=== PATIENT | female | born 1955 | race Caucasian/White ===

== ENCOUNTER 2018-10-24 15:38 | Inpatient (IN) | payer OTHER ==
[~2018-10-24] VITALS: Ht 157.5 cm; Wt 88.9 kg
[2018-10-24 15:43] VITALS: BP 148/74
[2018-10-24] MEDS ORDERED: ASPIRIN 81 MG TAB.CHEW PO ONE (15:50)
--- NOTE | 2018-10-24 15:52 | NUR ---
MEDICATED WITH ASA; EKG PLACED ON MD 'S DESK---PT BACK TO ER LOBBY WITH DAUGHTER WILL CONTINUE TO WAIT FOR AVAILABLE ROOM FOR MD YIP
--- NOTE | 2018-10-24 15:58 | NUR ---
PT TO ER BED 12
[2018-10-24] MEDS ORDERED: ASPIRIN 81 MG TAB.CHEW ONE (15:59)
--- NOTE | 2018-10-24 16:55 | NUR ---
PT A&OX4, BIB FAMILY C/O SUDDEN ONSET INTERMITTENT LEFT SIDED "HEAVY" CHEST PAIN RADIATES TO LUE PAIN / X 2 DAYS. ALSO C/O NAUSEA AND DIARRHEA X 1 TODAY, ABDOMEN DISTENDED. BREATHING EVEN AND UNLABORED. LUNG SOUNDS CTAB. SR WITH RIGHT BUNDLE BRANCH BLOCK ON MONITOR.
[2018-10-24 17:04] LABS: BASOPHILS % (AUTO) 0.3 % (0.0-2.0); EOSINOPHILS # (AUTO) 0.1 K/uL (0-0.4); EOSINOPHILS % (AUTO) 0.8 % (0.0-4.0); HEMATOCRIT 38.6 % (36-48); HEMOGLOBIN 13.1 g/dL (12.0-16.0); LYMPHOCYTES # (AUTO) 3.3 K/uL (2.5-16.5); LYMPHOCYTES % (AUTO) 26.8 % (20.5-51.1); MEAN CORPUSCULAR HEMOGLOBIN 29 pg (27-31); MEAN CORPUSCULAR HGB CONC 34 g/dL (33-37); MEAN CORPUSCULAR VOLUME 84.8 fL (80-94); MONOCYTES # (AUTO) 0.7 K/uL (0.8-1.0); MONOCYTES % (AUTO) 5.8 % (1.7-9.3); NEUTROPHILS # (AUTO) 8.1 K/uL (1.8-7.7); NEUTROPHILS % (AUTO) 66.3 % (42.2-75.2); PLATELET COUNT (AUTO) 276 K/uL (140-450); RED BLOOD CELL COUNT(AUTO) 4.55 MIL/uL (4.20-5.40); RED CELL DISTRIBUTION WIDTH 13.9 % (11.6-13.7); WHITE BLOOD COUNT (AUTO) 12.2 K/uL (4.8-10.8)
[2018-10-24] MEDS ORDERED: MORPHINE SULFATE 2 MG/ML SYR IVP PRN (17:05)
[2018-10-24] MEDS ORDERED: ONDANSETRON 4 MG/2 ML VIAL IVP PRN (17:05)
[2018-10-24] MEDS ORDERED: LORazepam 2 MG/ML VIAL IVP PRN (17:05)
[2018-10-24] MEDS ORDERED: MORPHINE SULFATE 4 MG/ML SYR IVP PRN (17:05)
[2018-10-24] MEDS ORDERED: ALBUTEROL 0.083% 2.5 MG/3 ML NEBU INH PRN (17:05)
[2018-10-24 17:22] LABS: ANION GAP 11.8 (8-16); CARBON DIOXIDE 27.3 mmol/L (21-32); CREATININE 0.8 mg/dL (0.6-1.3); POTASSIUM 3.1 mmol/L (3.5-5.1)
[2018-10-24 17:25] LABS: PROTHROMBIN TIME 9.5 secs (10.8-13.4)
[2018-10-24 17:28] LABS: ALBUMIN 3.2 g/dL (3.4-5.0); TOTAL BILIRUBIN 0.2 mg/dL (0.0-1.0)
[2018-10-24] MEDS ORDERED: POTASSIUM CHLORIDE 10 MEQ TABER PO ONE (17:45)
--- NOTE | 2018-10-24 18:52 | NUR ---
PT REMAINS SR ON MONITOR WITH R BUNDLE BRANCH BLOCK, PAIN REMAINS INTERMITTENT. AWAITING TRANSPORT TO TELE.
--- NOTE | 2018-10-24 19:19 | NUR ---
Patient will be admitted to care of DR. ELLINGTON. Admited to TELE . Will go to room 104B. Belongings list completed. Report to BERNARD BERG.
[2018-10-24 19:25] VITALS: BP 115/71
--- NOTE | 2018-10-24 19:25 | NUR ---
PT BROUGHT UP BY FELIPE ESCORTED BY SUSAN MANAGER OF CASE MANAGEMENT NURSE TO ROOM 104 . REPORT ALSO GIVEN BY SUSAN. PT ABLE TO TRANSFER SELF TO BED B. SHE IS AOX4 . SKIN INTACT WITH IV SITE 20G ON RIGHT HAND. PT COMES IN WITH CHIEF COMPLAINT OF CHEST PAIN. PT SAID THAT SHE HAS SOME INTERMITTED PAIN IN CHEST THAT RADIATES TO LEFT ARM, BUT NOT ENOUGH AT THIS TIME TO WANT ANYTHING FOR PAIN AT THIS TIME. PT HAS NO HX OF HEART TROUBLE, SHE IS ALSO ON TELEMETRY MONITORING AT THIS TIME. V/S FOLLOWS T 98.7 P 88 R 18 B/P 115/71 02 97% ON ROOM AIR. WILL CONTINUE TO MONITOR PT VIA TELEMETRY AND FOR PAIN. BED LOW AND SIDE RIALS UP X2. SALINE LOCKED AND ON A CARDIAC DIET.
--- NOTE | 2018-10-24 21:30 | NUR ---
PT REQUESTED FOOD AND DRINK AND WAS GIVEN REQUESTED ITEMS.
[2018-10-24 21:32] LABS: APPEARANCE,URINE HAZY (CLEAR); BILIRUBIN,URINE NEGATIVE (NEGATIVE); BLOOD, URINE NEGATIVE (NEGATIVE); COLOR,URINE YELLOW (YELLOW); LEUKOCYTE ESTERASE ,URINE NEGATIVE (NEGATIVE); NITRITE, URINE NEGATIVE (NEGATIVE); PH,URINE 7.5 (5.0-9.0); UGLUCOSE NEGATIVE (NEGATIVE)
--- NOTE | 2018-10-24 22:00 | NUR ---
PT C/O MODERATE 5/10 PAIN IN CHEST THAT IS INTERMITTED AND RUNS DOWN LEFT SIDE OF ARM. PT GIVEN ORDERED MORPHINE, WILL MONITOR FOR PAIN RELIEF.
[2018-10-25] VITALS: BP 108/62
--- NOTE | 2018-10-25 00:15 | NUR ---
PT IN BED SLEEPING BUT AROUSABLE TO NAME, V/S FOLLOWS T 98.1 P 77 R 18 B/P 108/62 02 99% ON ROOM AIR. BED LOW, SIDE RAILS UP X2 AND CALL MILES IN REACH. IV SITE ON R HAND IS SALINE LOCKED AT THIS TIME. NO C/O VOICED AT THIS TIME. WILL CONTINUE TO MONITOR FOR ANY C/O OF PAIN.
[2018-10-25 04:00] VITALS: BP 108/66
--- NOTE | 2018-10-25 04:30 | NUR ---
PT IN BED SLEEPING V/S FOLLOWS T 98.2 P 82 R 18 B/P 108/66 02 98% ON R/A. NO C/O OF PAIN VOICED. BED LOW ABND SIDE RAILS UP X2
--- NOTE | 2018-10-25 07:20 | NUR ---
CARE ENDORSED TO AM SHIFT, PT IN STABLE CONDITION.
--- NOTE | 2018-10-25 07:21 | NUR ---
REPORT RECEIVED FROM FOOD CART ATTENDANT NURSE AT BEDSIDE FOR CONTINUITY OF CARE. PATIENT AWAKE AND ALERT, STATES HEADACHE, WILL PAGE DR. ELLINGTON FOR ORDER. RESPIRATIONS EVEN AND UNLABORED ON ROOM AIR. PATIENT DENIES C.P. UPDATED BOARD, IV SITE INTACT, PATENT, AND ASYMPTOMATIC. SAFETY PRECAUTIONS IN PLACE, CALL LIGHT WITHIN REACH, WILL CONTINUE TO MONITOR PATIENT.
[2018-10-25 08:00] VITALS: BP 108/64
--- NOTE | 2018-10-25 08:13 | NUR ---
PATIENT HAS BEEN SCREENED AND CATEGORIZED HIGH NUTRITION RISK. PATIENT WILL BE SEEN WITHIN 1-2 DAYS OF ADMISSION. 10/25/18-10/26/[address]
[2018-10-25 08:24] LABS: BASOPHILS % (AUTO) 0.4 % (0.0-2.0); EOSINOPHILS # (AUTO) 0.1 K/uL (0-0.4); EOSINOPHILS % (AUTO) 1.2 % (0.0-4.0); HEMATOCRIT 38.7 % (36-48); HEMOGLOBIN 13.1 g/dL (12.0-16.0); LYMPHOCYTES # (AUTO) 2.9 K/uL (2.5-16.5); LYMPHOCYTES % (AUTO) 30.3 % (20.5-51.1); MEAN CORPUSCULAR HEMOGLOBIN 29 pg (27-31); MEAN CORPUSCULAR HGB CONC 34 g/dL (33-37); MEAN CORPUSCULAR VOLUME 85.6 fL (80-94); MONOCYTES # (AUTO) 0.5 K/uL (0.8-1.0); MONOCYTES % (AUTO) 5.2 % (1.7-9.3); NEUTROPHILS % (AUTO) 62.9 % (42.2-75.2); PLATELET COUNT (AUTO) 266 K/uL (140-450); RED BLOOD CELL COUNT(AUTO) 4.51 MIL/uL (4.20-5.40); RED CELL DISTRIBUTION WIDTH 14.6 % (11.6-13.7); WHITE BLOOD COUNT (AUTO) 9.5 K/uL (4.8-10.8)
[2018-10-25 08:44] LABS: ANION GAP 13.5 (8-16); CARBON DIOXIDE 26.5 mmol/L (21-32); CREATININE 0.7 mg/dL (0.6-1.3); MAGNESIUM 2.2 mg/dL (1.8-2.4); TOTAL BILIRUBIN 0.4 mg/dL (0.0-1.0)
[2018-10-25] MEDS ORDERED: ASPIRIN 81 MG TAB.CHEW PO SCH (09:00)
[2018-10-25] MEDS ORDERED: ACETAMINOPHEN 325 MG TAB PO PRN (09:20)
--- NOTE | 2018-10-25 09:40 | NUR ---
PATIENT C/O OF HEADACHE, PRN TYLENOL GIVEN. PATIENT TOLERATED IT WELL. WILL CONTINUE TO MONITOR PATIENT.
--- NOTE | 2018-10-25 10:32 | NUR ---
Follow up appointment to see PCP Dr. Villa Jimenez on 11/08/18 at 0900 at [address] [facility] [address]. Clinic # . Apointment given to pt and her daughter Liz with verbal understanding.
--- NOTE | 2018-10-25 11:45 | NUR ---
VS WNL, PATIENT DENIES FISHER OR CHEST PAIN. NO COMPLAINTS AT THIS TIME. DR. ELLINGTON IN TO SEE PATIENT. DISCHARGE ORDER IN. PATIENT'S DAUGHTER WILL PICK PATIENT UP AFTER DINNER. WILL CONTINUE TO MONITOR PATIENT.
[2018-10-25 12:00] VITALS: BP 124/49
--- NOTE | 2018-10-25 14:28 | NUR ---
10/25/18 RD INITIAL ASSESSMENT COMPLETED PLEASE REFER TO NUTRITION ASSESSMENT UNDER CARE ACTIVITY FOR ESTIMATED NUTRITIONAL NEEDS. 1. RECOMMEND SWALLOW EVALUATION 2. RECOMMEND CARDIAC DIET WITH TEXTURE AND LIQUID CONSISTENCY SUGGESTED BY SWALLOW EVALUATION 3. CARDIAC DIET EDUCATION WAS PROVIDED 4. RD TO FOLLOW-UP 3-5 DAYS, MODERATE RISK DONG CAMP, MAURO
[2018-10-25 16:00] VITALS: BP 104/47
--- NOTE | 2018-10-25 16:50 | NUR ---
DISCHARGE INSTRUCTIONS GIVEN TO PATIENT. SHE VERBALIZED UNDERSTANDING. WILL REMOVE IV, ARM BAND, AND TELE MONITOR AFTER DINNER. PATIENT AGREEABLE WITH PLAN.
--- NOTE | 2018-10-25 18:25 | NUR ---
FAMILY AT BEDSIDE. PATIENT IV REMOVED, IV CATHETER INTACT, PATIENT TOLERATED, MINIMAL BLEEDING NOTED. ID BANDS CUT. TELE MONITOR REMOVED. PATIENT WILL CHANGE INTO OWN CLOTHING AND GET READY FOR DISCHARGE.
--- NOTE | 2018-10-25 18:40 | NUR ---
PATIENT AMBULATED OFF FLOOR WITH FAMILY MEMBERS. PATIENT IN STABLE CONDITION, TOOK ALL HER BELONGINGS WITH HER.
== END 2018-10-25 18:40 | disposition home or self-care (01) | DRG 203 ==
LOC: MED 15:38 → MTU 17:06 → OBSVTOIN 10-25 09:08
PROVIDERS: ADMIT Internal Medicine Pulmonary Disease; ATTEND Internal Medicine Pulmonary Disease
DX: M94.0 Chondrocostal junction syndrome [Tietze] (principal); E44.1 Mild protein-calorie malnutrition; J45.909 Unspecified asthma, uncomplicated; I10 Essential (primary) hypertension; E78.5 Hyperlipidemia, unspecified; E03.9 Hypothyroidism, unspecified; S46.002A Unspecified injury of muscle(s) and tendon(s) of the rotator cuff of left shoulder, initial encounter; X58.XXXA Exposure to other specified factors, initial encounter; E66.9 Obesity, unspecified; Z68.35 Body mass index [BMI] 35.0-35.9, adult; Z85.43 Personal history of malignant neoplasm of ovary; Z90.710 Acquired absence of both cervix and uterus; Y93.89 Activity, other specified; Y92.89 Other specified places as the place of occurrence of the external cause; Y99.8 Other external cause status
CPT/HCPCS: 99285; G0378; 36415; 71045; 80053; 81003; 83735; 84484; 85025; 85379; 85610; 87081; 93005; 93970; G0482; J2270; Q0092

== ENCOUNTER 2019-06-29 18:12 | Emergency (ER) | payer OTHER ==
[~2019-06-29] VITALS: Ht 162.6 cm; Wt 89.8 kg
[2019-06-29 18:28] VITALS: BP 139/76
[2019-06-29] MEDS ORDERED: ASPIRIN 81 MG TAB.CHEW PO ONE (18:35)
[2019-06-29] MEDS ORDERED: NITROGLYCERIN 0.4 MG TAB SL ONE (18:35)
[2019-06-29] MEDS ORDERED: NACL 0.9% 1,000 ML IV ONE (18:35)
--- NOTE | 2019-06-29 18:45 | NUR ---
NITRO AND ASPIRIN ADMINISTERED
--- NOTE | 2019-06-29 18:46 | NUR ---
XRAY AT BEDSIDE
--- NOTE | 2019-06-29 18:53 | NUR ---
BIB FAMILY W/ C/O DIZZINESS, NAUSEA X 2 DAYS AND LT SIDED CHEST PAIN RADIATING TO THE LT ARM 02/17. PT ADDS H/A, INCREASED THIRST, APPEARS LETHARGIC, NON-DIAPHORETIC AT THIS TIME. TACHY AT 108. AFEBRILE. NEURO INTACT: PUPILS PERRL, EQUAL ARM CERTIFIED RETINAL ANGIOGRAPHER, PT FOLLOWS COMMANDS, PT AWAKE, ORIENTED, AND AMBULATED TO BED WITH ASSISTANCE. PMH- ARTERY PLAQUE, OVARIAN CANCER
[2019-06-29 19:06] LABS: BASOPHILS # (AUTO) 0.1 K/uL (0.00-0.22); BASOPHILS % (AUTO) 0.9 % (0.0-2.0); EOSINOPHILS # (AUTO) 0.1 K/uL (0-0.4); EOSINOPHILS % (AUTO) 1.2 % (0.0-4.0); HEMATOCRIT 42.9 % (36-48); HEMOGLOBIN 14.5 g/dL (12.0-16.0); LYMPHOCYTES # (AUTO) 2.5 K/uL (2.5-16.5); LYMPHOCYTES % (AUTO) 25.8 % (20.5-51.1); MEAN CORPUSCULAR HEMOGLOBIN 29 pg (27-31); MEAN CORPUSCULAR HGB CONC 34 g/dL (33-37); MEAN CORPUSCULAR VOLUME 86.4 fL (80-94); MONOCYTES # (AUTO) 0.5 K/uL (0.8-1.0); NEUTROPHILS # (AUTO) 6.6 K/uL (1.8-7.7); NEUTROPHILS % (AUTO) 67.1 % (42.2-75.2); PLATELET COUNT (AUTO) 292 K/uL (140-450); RED BLOOD CELL COUNT(AUTO) 4.97 MIL/uL (4.20-5.40); RED CELL DISTRIBUTION WIDTH 14.1 % (11.6-13.7); WHITE BLOOD COUNT (AUTO) 9.8 K/uL (4.8-10.8)
--- NOTE | 2019-06-29 19:07 | NUR ---
NADR TO ADMINISTERED MEDICATIONS
[2019-06-29] MEDS ORDERED: KETOROLAC 30 MG/ML VIAL IVP ONE (19:20)
--- NOTE | 2019-06-29 19:23 | NUR ---
REPORT GIVEN TO ELISABET WAGNER
[2019-06-29 19:35] LABS: PROTHROMBIN TIME 9.4 secs (10.8-13.4)
[2019-06-29 19:45] LABS: ANION GAP 15.2 (8-16); CARBON DIOXIDE 25.6 mmol/L (21-32); POTASSIUM 3.8 mmol/L (3.5-5.1)
[2019-06-29 19:52] LABS: ALBUMIN 3.4 g/dL (3.4-5.0); TOTAL BILIRUBIN 0.2 mg/dL (0.0-1.0)
[2019-06-29 21:35] VITALS: BP 140/80
--- NOTE | 2019-06-29 21:35 | NUR ---
Patient discharged with v/s stable. Written and verbal after care instructions ABOUT URINARY TRACT INFECTIONS AND WEAKNESS given and explained. Patient alert, oriented and verbalized understanding of instructions. Ambulatory with steady gait. All questions addressed prior to discharge. ID band removed. Patient advised to follow up with PMD. Rx of MOTRIN, CIPRO, AND ZOFRAN given. Patient educated on indication of medication including possible reaction and side effects. Opportunity to ask questions provided and answered.
--- NOTE | 2019-06-29 21:45 | NUR ---
Note dwight in EDM - 06/29/19 at 9178 by MEDHuaJ Patient will be admitted to care of DR JANSEN. Admited to TELE. Will go to room 120A. Belongings list completed. Report to CHOCO WAGNER.
--- NOTE | 2019-07-12 13:41 | NUR ---
Late entry. Confirmed with RN that 0.9 NS IV completed at 1950
== END 2019-06-29 21:35 | disposition home or self-care (01) ==
LOC: MED 18:12
DX: N39.0 Urinary tract infection, site not specified (principal); R53.1 Weakness; J45.909 Unspecified asthma, uncomplicated; Z85.9 Personal history of malignant neoplasm, unspecified; Z86.79 Personal history of other diseases of the circulatory system; Z90.49 Acquired absence of other specified parts of digestive tract
CPT/HCPCS: 36415; 71045; 80053; 81002; 83880; 84484; 85025; 85610; 85730; 87804; 93005; 96361; 96374; 99284; J1885; J7030

== ENCOUNTER 2019-12-26 19:28 | Emergency (ER) | payer OTHER, SELFPAY ==
[~2019-12-26] VITALS: Ht 162.6 cm; Wt 84.8 kg
[2019-12-26 19:35] VITALS: BP 133/73
[2019-12-26 20:20] VITALS: BP 133/73
== END 2019-12-26 20:20 | disposition home or self-care (01) ==
LOC: EEVIPCON 19:28 → MED 19:28
DX: B34.9 Viral infection, unspecified (principal); Z20.828 Contact with and (suspected) exposure to other viral communicable diseases; J10.1 Influenza due to other identified influenza virus with other respiratory manifestations; R03.0 Elevated blood-pressure reading, without diagnosis of hypertension; J45.909 Unspecified asthma, uncomplicated; Z85.43 Personal history of malignant neoplasm of ovary
CPT/HCPCS: 87804; 99283; U0003

== ENCOUNTER 2020-02-14 18:36 | Emergency (ER) | payer OTHER, SELFPAY ==
[~2020-02-14] VITALS: Ht 162.6 cm; Wt 65.8 kg
[2020-02-14 18:42] VITALS: BP 127/69
--- NOTE | 2020-02-14 18:51 | NUR ---
64 Y/O FEMALE C/O HEADACHE X2 DAYS AND INTERMITTENT CHEST PAIN, FEELS LIKE STABBING 7/10 PAIN. DENIES ANY SOB/COUGH/FEVER. RESP EVEN AND UNLABORED. VSS.
--- NOTE | 2020-02-14 19:20 | NUR ---
PT AMBULATED WITH STEADY GAIT TO BED 2. PT PLACED ON ANALYTICS ASSOCIATE.
--- NOTE | 2020-02-14 19:35 | NUR ---
EKG BEING PERFORMED AT BEDSIDE BY EMT.
--- NOTE | 2020-02-14 19:40 | NUR ---
LAB AT BEDSIDE
[2020-02-14 19:44] LABS: BASOPHILS % (AUTO) 0.4 % (0.0-2.0); EOSINOPHILS # (AUTO) 0.1 K/uL (0-0.4); EOSINOPHILS % (AUTO) 1.6 % (0.0-4.0); HEMATOCRIT 37.8 % (36-48); HEMOGLOBIN 12.8 g/dL (12.0-16.0); LYMPHOCYTES # (AUTO) 2.7 K/uL (2.5-16.5); LYMPHOCYTES % (AUTO) 31.8 % (20.5-51.1); MEAN CORPUSCULAR HEMOGLOBIN 29 pg (27-31); MEAN CORPUSCULAR HGB CONC 34 g/dL (33-37); MEAN CORPUSCULAR VOLUME 86.5 fL (80-94); MONOCYTES # (AUTO) 0.6 K/uL (0.8-1.0); MONOCYTES % (AUTO) 7.3 % (1.7-9.3); NEUTROPHILS % (AUTO) 58.9 % (42.2-75.2); PLATELET COUNT (AUTO) 257 K/uL (140-450); RED BLOOD CELL COUNT(AUTO) 4.37 MIL/uL (4.20-5.40); RED CELL DISTRIBUTION WIDTH 14.7 % (11.6-13.7); WHITE BLOOD COUNT (AUTO) 8.4 K/uL (4.8-10.8)
[2020-02-14] MEDS ORDERED: KETOROLAC 30 MG/ML VIAL IM ONE (19:50)
[2020-02-14 19:51] LABS: ANION GAP 15.9 (8-16); CARBON DIOXIDE 28.1 mmol/L (21-32)
[2020-02-14 19:56] LABS: ALBUMIN 3.4 g/dL (3.4-5.0); TOTAL BILIRUBIN 0.2 mg/dL (0.0-1.0)
--- NOTE | 2020-02-14 20:19 | NUR ---
PT AMBULATED TO RESTROOM, STEADY GAIT.
--- NOTE | 2020-02-14 20:24 | NUR ---
PT AMBULATED BACK TO BED 02, STEADY GAIT. PT PLACED BACK ON MONITOR. VSS. WILL CONTINUE TO MONITOR.
[2020-02-14 20:39] VITALS: BP 128/67
--- NOTE | 2020-02-14 20:39 | NUR ---
COVID SWAB DONE AND SENT TO LAB
--- NOTE | 2020-02-15 22:37 | NUR ---
LAB CALLED FOR PT SARS-COV-2 NAAT RESULT OROPHARYNGEAL WITH NEGATIVE RESULT. LAB RESULT WILL FORWARD TO PRODUCTION CONTROLLER EDUARD AND TO INFECTION CONTROL BOX.
== END 2020-02-14 20:39 | disposition home or self-care (01) ==
LOC: MED 18:36
DX: M94.0 Chondrocostal junction syndrome [Tietze] (principal); R51 Headache; J45.909 Unspecified asthma, uncomplicated; I51.9 Heart disease, unspecified; Z85.42 Personal history of malignant neoplasm of other parts of uterus
CPT/HCPCS: 36415; 71045; 80053; 81002; 84484; 85025; 93005; 96372; 99285; J1885; U0003

== ENCOUNTER 2021-08-08 18:31 | Emergency (ER) | payer OTHER ==
[~2021-08-08] VITALS: Ht 162.6 cm; Wt 90.7 kg
[2021-08-08 19:00] VITALS: BP 147/94
[2021-08-08] MEDS ORDERED: CEPH-588 PO (19:52)
[2021-08-08] MEDS ORDERED: PROM118S5 PO (19:52)
[2021-08-08] MEDS ORDERED: MECL-303 PO (19:52)
[2021-08-08 19:59] VITALS: BP 147/94
--- NOTE | 2021-08-08 19:59 | NUR ---
Patient discharged with v/s stable. Written and verbal after care instructions given and explained. Patient alert, oriented and verbalized understanding of instructions. Ambulatory with steady gait. All questions addressed prior to discharge. ID band removed. Patient advised to follow up with PMD. Rx of KEFLEX, ANTIVERT, PROMETHAZINE given. Patient educated on indication of medication including possible reaction and side effects. Opportunity to ask questions provided and answered.
== END 2021-08-08 19:59 | disposition home or self-care (01) ==
LOC: MED 18:31
DX: R42 Dizziness and giddiness (principal); N39.0 Urinary tract infection, site not specified; J45.909 Unspecified asthma, uncomplicated; Z85.42 Personal history of malignant neoplasm of other parts of uterus; Z86.73 Personal history of transient ischemic attack (TIA), and cerebral infarction without residual deficits; Z79.899 Other long term (current) drug therapy
CPT/HCPCS: 71045; 81002; 99283

== ENCOUNTER 2021-12-15 17:42 | Emergency (ER) | payer OTHER ==
[~2021-12-15] VITALS: Ht 162.6 cm; Wt 92.3 kg
[~2021-12-15 17:42] MED LIST: CEPH-588 PO; MECL-303 PO; PROM118S5 PO
[2021-12-15 18:01] VITALS: BP 166/77
--- NOTE | 2021-12-15 20:48 | NUR ---
PT AMBULATORY TO BED #5
--- NOTE | 2021-12-15 21:01 | NUR ---
DR SHEFFIELD AT BEDSIDE EVALUATING PATIENT.
[2021-12-15] MEDS ORDERED: LIDOCAINE 5% 1 EA PATCH TP ONE (21:10)
[2021-12-15] MEDS ORDERED: KETOROLAC 30 MG/ML VIAL IM ONE (21:10)
--- NOTE | 2021-12-15 21:26 | NUR ---
PATIENT IS BEING TAKEN TO IMAGING VIA GURNEY.
--- NOTE | 2021-12-15 21:30 | NUR ---
66 Y/O FEMALE CAME IN TO THE ER FOR BACK PAIN X 1 WEEK. PATIENT HAS PAIN FROM BACK TO LEFT LEG. PATIENT DENIES ANY INJURY OR TRAUMA. PATIENT STATES PAIN IS GETTING WORSE. MEDICAL HISTORY:ASTHMA NKDA
--- NOTE | 2021-12-15 21:45 | NUR ---
PATIENT RETURNED FROM IMAGING.
[2021-12-15] MEDS ORDERED: NAPR-54 PO (22:36)
[2021-12-15] MEDS ORDERED: LID5T TP (22:36)
--- NOTE | 2021-12-15 22:42 | NUR ---
DR. SHEFFIELD RE-EVALUATING PATIENT.
--- NOTE | 2021-12-15 22:50 | NUR ---
Patient discharged with v/s stable. Written and verbal after care instructions given. Patient alert, oriented and verbalized understanding of instructions. Ambulatory with steady gait. All questions addressed prior to discharge. ID band removed. Patient advised to follow up with PMD. Rx of LIDODERM AND NAPROXEN given. Opportunity to ask questions provided and answered.
--- NOTE | 2021-12-15 22:55 | NUR ---
The patient's care was reviewed and supervised by Nina Franklin RN.
== END 2021-12-15 22:50 | disposition home or self-care (01) ==
LOC: MED 17:42
DX: M54.16 Radiculopathy, lumbar region (principal); J45.909 Unspecified asthma, uncomplicated; Z79.899 Other long term (current) drug therapy; Z85.42 Personal history of malignant neoplasm of other parts of uterus; Z90.710 Acquired absence of both cervix and uterus
CPT/HCPCS: 72128; 72131; 81002; 96372; 99284; J1885

== ENCOUNTER 2023-07-02 13:54 | Emergency (ER) | payer OTHER ==
[~2023-07-02] VITALS: Ht 162.6 cm; Wt 90.7 kg
[~2023-07-02 13:54] MED LIST changes: +ATOR10TA51 PO; +CARV6.252 PO; -CEPH-588 PO; +GABA-636 PO; +OMEP-283 PO; -PROM118S5 PO
[2023-07-02 14:09] VITALS: BP 133/76; PULSE 112; RESP 15; TEMP 98; O2SAT 98
[2023-07-02] MEDS ORDERED: ONDANSETRON 4 MG ODT PO ONE (14:50)
[2023-07-02] MEDS ORDERED: KETOROLAC 30 MG/ML VIAL IM ONE (14:50)
[2023-07-02 15:44] LABS: BASOPHILS # (AUTO) 0.1 K/uL (0.00-0.22); BASOPHILS % (AUTO) 0.5 % (0.0-2.0); EOSINOPHILS % (AUTO) 0.1 % (0.0-4.0); HEMATOCRIT 44.5 % (36-48); HEMOGLOBIN 15.4 g/dL (12.0-16.0); LYMPHOCYTES # (AUTO) 2.3 K/uL (2.5-16.5); LYMPHOCYTES % (AUTO) 16.2 % (20.5-51.1); MEAN CORPUSCULAR HEMOGLOBIN 29 pg (27-31); MEAN CORPUSCULAR HGB CONC 35 g/dL (33-37); MEAN CORPUSCULAR VOLUME 84.1 fL (80-94); MONOCYTES # (AUTO) 0.7 K/uL (0.8-1.0); MONOCYTES % (AUTO) 5.1 % (1.7-9.3); NEUTROPHILS # (AUTO) 10.9 K/uL (1.8-7.7); NEUTROPHILS % (AUTO) 78.1 % (42.2-75.2); PLATELET COUNT (AUTO) 317 K/uL (140-450); RED CELL DISTRIBUTION WIDTH 14.3 % (11.6-13.7); WHITE BLOOD COUNT (AUTO) 13.9 K/uL (4.8-10.8)
[2023-07-02 16:07] LABS: CALCIUM 9.3 mg/dL (8.5-10.1); CARBON DIOXIDE 27.1 mmol/L (21-32); CREATININE 0.9 mg/dL (0.6-1.3); POTASSIUM 3.1 mmol/L (3.5-5.1)
[2023-07-02 16:10] LABS: ALANINE AMINOTRANSFERASE 36 U/L (12-78); ALBUMIN 3.6 g/dL (3.4-5.0); ALKALINE PHOSPHATASE 137 U/L (50-136); ASPARTATE AMINOTRANSFERASE 28 U/L (15-37); BILIRUBIN,DIRECT 0.2 mg/dL (0.0-0.3); LIPASE 24 U/L (16-77); TOTAL BILIRUBIN 0.7 mg/dL (0.0-1.0); TOTAL PROTEIN, SERUM 7.7 g/dL (6.4-8.2)
[2023-07-02 16:15] LABS: APPEARANCE,URINE HAZY (CLEAR); BILIRUBIN,URINE 2+ (NEGATIVE); BLOOD, URINE 1+ (NEGATIVE); COLOR,URINE YELLOW (YELLOW); LEUKOCYTE ESTERASE ,URINE TRACE (NEGATIVE); NITRITE, URINE NEGATIVE (NEGATIVE); PROTEIN,URINE 2+ (NEGATIVE); UGLUCOSE NEGATIVE (NEGATIVE)
[2023-07-02 16:29] LABS: ICTOTEST NEGATIVE (NEGATIVE)
[2023-07-02 16:31] LABS: BACTERIA,URINE 2+ /HPF (None Seen); RBC,URINE NONE SEEN /HPF (0-5); SQUAMOUS EPITHELIAL CELL,UR 4-10 (MOD) /LPF (0-3 (FEW)); WBC,URINE 0-5 /HPF (0-5); YEAST,URINE Few /HPF (None Seen)
[2023-07-02] MEDS ORDERED: ONDA-188 PO (17:41)
[2023-07-02] MEDS ORDERED: AMOX-1230 PO (17:48)
[2023-07-02] MEDS ORDERED: IMO2 PO (17:48)
[2023-07-02] MEDS ORDERED: IBUP-2213 PO (17:55)
[2023-07-02 18:58] LABS: FLU A ANTIGEN negative (NEGATIVE); FLU B ANTIGEN negative (NEGATIVE)
== END 2023-07-02 18:08 | disposition home or self-care (01) ==
LOC: MED 13:54
DX: J20.9 Acute bronchitis, unspecified (principal); Z20.822 Contact with and (suspected) exposure to COVID-19; R11.2 Nausea with vomiting, unspecified; R19.7 Diarrhea, unspecified; J45.909 Unspecified asthma, uncomplicated; I11.9 Hypertensive heart disease without heart failure; Z79.899 Other long term (current) drug therapy
CPT/HCPCS: 36415; 71045; 80048; 80076; 81001; 83690; 84484; 85025; 87086; 87426; 87804; 93005; 96372; 99285; J1885; Q0162

== ENCOUNTER 2024-03-11 19:39 | Emergency (ER) | payer OTHER ==
[~2024-03-11] VITALS: Ht 162.6 cm; Wt 85.7 kg
[~2024-03-11 19:39] MED LIST changes: +AMOX-1230 PO; +IBUP-2213 PO; +IMO2 PO; +ONDA-188 PO
[2024-03-11 20:00] VITALS: BP 134/74; PULSE 72; RESP 16; TEMP 97.2; O2SAT 97
--- NOTE | 2024-03-11 20:18 | NUR ---
TO LOBBY FOLLOWING TRIAGE AFTER EKG WAS DONE
[2024-03-11 21:02] LABS: BASOPHILS # (AUTO) 0.1 K/uL (0.00-0.22); BASOPHILS % (AUTO) 0.6 % (0.0-2.0); EOSINOPHILS # (AUTO) 0.1 K/uL (0-0.4); HEMATOCRIT 40.4 % (36-48); HEMOGLOBIN 13.5 g/dL (12.0-16.0); LYMPHOCYTES # (AUTO) 3.1 K/uL (2.5-16.5); LYMPHOCYTES % (AUTO) 29.8 % (20.5-51.1); MEAN CORPUSCULAR HEMOGLOBIN 29 pg (27-31); MEAN CORPUSCULAR HGB CONC 34 g/dL (33-37); MEAN CORPUSCULAR VOLUME 85.4 fL (80-94); MONOCYTES # (AUTO) 0.7 K/uL (0.8-1.0); MONOCYTES % (AUTO) 6.7 % (1.7-9.3); NEUTROPHILS # (AUTO) 6.5 K/uL (1.8-7.7); NEUTROPHILS % (AUTO) 61.9 % (42.2-75.2); PLATELET COUNT (AUTO) 290 K/uL (140-450); RED BLOOD CELL COUNT(AUTO) 4.74 MIL/uL (4.20-5.40); RED CELL DISTRIBUTION WIDTH 14.1 % (11.6-13.7); WHITE BLOOD COUNT (AUTO) 10.5 K/uL (4.8-10.8)
[2024-03-11 21:10] LABS: CALCIUM 9.3 mg/dL (8.5-10.1); CARBON DIOXIDE 31.1 mmol/L (21-32); CREATININE 0.9 mg/dL (0.6-1.3); POTASSIUM 4.1 mmol/L (3.5-5.1)
[2024-03-11 21:11] LABS: PARTIAL THROMBOPLASTIN TIME 20.9 secs (22-35.6); PROTHROMBIN TIME 10.5 secs (10.8-13.4)
[2024-03-11 21:46] VITALS: BP 128/70; PULSE 68; RESP 16; TEMP 97.2; O2SAT 97
--- NOTE | 2024-03-11 21:46 | NUR ---
Patient discharged with v/s stable. Written and verbal after care instructions given and explained. Patient verbalized understanding. Ambulatory with to car. All questions addressed prior to discharge. Advised to follow up with PMD.
== END 2024-03-11 21:46 | disposition home or self-care (01) ==
LOC: MED 19:39
DX: R07.89 Other chest pain (principal); J45.909 Unspecified asthma, uncomplicated; E78.5 Hyperlipidemia, unspecified; I10 Essential (primary) hypertension; Z85.42 Personal history of malignant neoplasm of other parts of uterus; Z79.1 Long term (current) use of non-steroidal anti-inflammatories (NSAID); Z79.2 Long term (current) use of antibiotics; Z79.899 Other long term (current) drug therapy
CPT/HCPCS: 36415; 71045; 80048; 83880; 84484; 85025; 85610; 85730; 93005; 99285